=== PATIENT | female | born 1945 | race Caucasian/White ===

== ENCOUNTER 2020-06-08 01:03 | Outpatient (CLI) | payer MEDICARE, BC, SELFPAY ==
[2020-06-08 18:04] LABS: SARS-CoV-2 RNA PCR Negative
== END 2020-06-08 01:04 | disposition home or self-care (01) ==
LOC: ANHCOVIDDT 01:03
PROVIDERS: Visit Provider Surgery Plastic and Reconstructive Surgery
DX: Z01.812 Encounter for preprocedural laboratory examination (principal); Z20.828 Contact with and (suspected) exposure to other viral communicable diseases
CPT/HCPCS: 87635; C9803; U0003

== ENCOUNTER 2020-06-11 02:40 | Day surgery (SDC) | payer MEDICARE, BC, SELFPAY ==
[2020-06-05 10:15] VITALS: BMI 38.2
[2020-06-11 06:49] VITALS: BP 127/59; PULSE 62; RESP 20; TEMP 35.6; O2SAT 98
--- NOTE | 2020-06-11 06:59 | WPDHPUPDATE1 ---
History and Physical Update Update Date/Time: 06/11/20 06:59 History and Physical has been reviewed, including an updated exam of the patient. There are NO changes in the patient's condition. Risks, benefits, and alternatives have been discussed and questions answered. Patient agrees to proceed with procedure.
[2020-06-11] MEDS: LACTATED RINGERS 1,000 ML 30 ML IV CONT ×2 (07:34→09:27)
[2020-06-11 07:41] LABS: Glucose Point of Care 181 (65-105)
--- NOTE | 2020-06-11 08:08 | WPDANESEPP ---
Anes - Eval Pre Procedure Procedure: Operation Date: 06/11/20 08:30 Proposed Procedures p Bilateral Upper Eyelid Blepharoplasty - Marcos Yu MD Date/Time: 06/11/20 08:08 Pre Op Diagnosis: dermatochalasis Patient Data Age: 74 Gender: F Height: 5 ft 5 in Weight: 99.85 kg Last Vital Signs Temp 96.0 F L 06/11/20 06:49 Pulse 62 06/11/20 06:49 Resp 20 06/11/20 06:49 BP 127/59 L 06/11/20 06:49 Pulse Ox 98 06/11/20 06:49 Allergies Allergy/AdvReac Type Severity Reaction Status Date / Time codeine Allergy Nausea Verified 06/11/20 07:03 Home Medications Medication Instructions Recorded Confirmed Type aspirin 81 mg chewable tablet 81 mg PO DAILY 02/28/20 06/11/20 History escitalopram oxalate 10 mg tablet 10 mg PO DAILY tablet 02/28/20 06/11/20 History levothyroxine 150 mcg tablet 150 mcg PO DAILY tablet 02/28/20 06/11/20 History losartan 50 mg tablet 50 mg PO DAILY tablet 02/28/20 06/11/20 History metoprolol succinate 25 mg 25 mg PO QPM tablet 02/28/20 06/11/20 History tablet,extended release 24 hr rosuvastatin 10 mg tablet 10 mg PO QPM tablet 02/28/20 06/11/20 History sitagliptin 50 mg-metformin 1,000 1 tablet PO BID tablet 02/28/20 06/11/20 History mg tablet cholecalciferol (vitamin D3) 50 mcg PO DAILY 06/05/20 06/11/20 History cyanocobalamin (vitamin B-12) 1,000 mcg PO BID 06/05/20 06/11/20 History magnesium 200 mg PO HS 06/05/20 06/11/20 History omeprazole 40 mg PO DAILY 06/05/20 06/11/20 History solifenacin [Vesicare] 5 mg PO QPM 06/05/20 06/11/20 History Laboratory Tests 06/11/20 07:32 POC Capillary Glucose 181 mg/dl H mg/dl (65-105) Patient hx anesthesia problems: none Family hx anesthesia problems: none PMFSH Past Medical History Medical History Dermatochalasis of both upper eyelids Diabetes type II Encounter for cosmetic surgery Epiphora Milia Seborrheic keratosis Visual field defect Surgical History Surgical History History of carpal tunnel surgery 2016 History of hernia surgery 1975 History of hysterectomy 2000 History of right hip replacement 2016 History of rotator cuff surgery right - 2012 History of tubal ligation 1974 History of weight loss surgery Social History Social History Smoking status: Never smoker Alcohol intake: never Substance use: never Living arrangements: with family Spiritual care concerns: No Exam Day of Procedure 06/11/20 08:08 Patient weight: obese Heart: regular rate and rhythm Lungs: clear to auscultation Airway: Mallampati scale class II Neurological: alert and oriented
--- NOTE | 2020-06-11 08:20 | P.PNAN_ITS ---
Anes - Eval Final PreProcedure Day of Procedure 06/11/20 08:20 Patient weight: obese Heart: regular rate and rhythm Lungs: clear to auscultation Airway: Mallampati scale class II Neurological: alert and oriented Last oral intake: >/= 8 hours ASA classification: III Emergent: no Anesthetic plan: proceed Anesthesia type and monitoring: general LMA and standard monitoring Informed Consent: The patient's anesthetic plan and its attendant risks and be nefits were discussed with the patient/family/POA. Questions were solicited and answers provided to the satisfaction of the patient/family/POA.
[2020-06-11] MEDS: ceFAZolin 2 GM/D5W 50 ML 2 GM/50 ML BAG IVPB (08:24)
[2020-06-11] MEDS: LIDO 1%/EPINEPHRINE 1:100,000 20 ML VIAL 7 ML INFILTRATE (08:24)
[2020-06-11] MEDS: KETOROLAC 30 MG/ML VIAL (*BKC) 15 MG IV PUSH (09:10)
[2020-06-11 09:27] VITALS: BP 117/58; PULSE 69; RESP 14; O2SAT 95
--- NOTE | 2020-06-11 09:29 | PM.PROC ---
Procedure Note - Detailed Date of procedure: 06/11/20 Pre-op diagnosis: dermatochalasis Post-op diagnosis: same Procedure performed: Bilateral upper eyelid blepharoplasty Description of procedure: Risks, benefits, alternatives were discussed extensive detail. I her to be very realistic about the risks involved as well as expectations. Made sure answered all of her questions to her satisfaction. Consent obtained. She was marked in the preoperative holding area with her verification. I did a pinch test to make sure that she had no lagophthalmos with excision of the tissue. She was taken to the operating room placed supine on the operating room table. Anesthesia provided by anesthesiology and prepped and draped in a standard sterile fashion. Surgical time-out was taken. 1% lidocaine and 0.25% Marcaine with epinephrine was used anesthetize locally. A 15 blade used to excise the skin flap. I then opened the medial and middle compartments and verified there was no excess adiposity. May try verified strict hemostasis. I closed with a running subcuticular 4-0 Prolene. I placed Steri-Strips with benzoin medial and lateral to affix the suture ends. Irrigated the eyes with BSS. Taken to the PACU without difficulty. All instrument sponge counts were correct at the end of the case. Anesthesia: GLMA Surgeon: Marcos Yu MD Estimated blood loss (mL): 5 Drains: No Packing: No Pathology: none sent Complications: No immediate complications Condition: stable Disposition: PACU
[2020-06-11 09:38] LABS: Glucose Point of Care 146 (65-105)
[2020-06-11] MEDS: BACITRACIN OP OINT 3.5 GM TUBE 1 APPLIC EACH EYE (09:45)
[2020-06-11 09:50] VITALS: BP 116/62; PULSE 60; RESP 20
[2020-06-11 10:20] VITALS: BP 110/60; PULSE 64; RESP 16
--- NOTE | 2020-06-11 10:36 | SUR.OPER ---
EBL:5cc
== END 2020-06-11 10:30 | disposition home or self-care (01) ==
PROVIDERS: Visit Provider Surgery Plastic and Reconstructive Surgery
PROC: (CPT 15823; principal; 2020-06-11 08:30)
DX: H02.834 Dermatochalasis of left upper eyelid (principal); H02.831 Dermatochalasis of right upper eyelid; H53.40 Unspecified visual field defects; H04.209 Unspecified epiphora, unspecified side; I10 Essential (primary) hypertension; E78.5 Hyperlipidemia, unspecified; E11.9 Type 2 diabetes mellitus without complications; E03.9 Hypothyroidism, unspecified; E66.9 Obesity, unspecified; Z68.36 Body mass index [BMI] 36.0-36.9, adult; Z98.84 Bariatric surgery status; Z79.82 Long term (current) use of aspirin; Z79.899 Other long term (current) drug therapy
CPT/HCPCS: 15823; A9270; J0690; J1885; J2405; J2704; J3010; J7120

== ENCOUNTER → 2020-11-30 01:13 | Outpatient (CLI) | payer OTHER, SELFPAY ==
[2020-11-30 19:16] LABS: SARS-CoV-2 RNA PCR Negative
== END ==
PROVIDERS: Visit Provider Surgery Plastic and Reconstructive Surgery
DX: Z01.812 Encounter for preprocedural laboratory examination (principal); Z20.822 Contact with and (suspected) exposure to COVID-19
CPT/HCPCS: C9803; U0003; U0005

== ENCOUNTER 2020-11-30 07:27 | Outpatient (CLI) | payer OTHER, SELFPAY ==
[2020-11-30 08:24] LABS: Hemoglobin 12.9 g/dL (12.0-15.0); Mean Corpuscular HGB Conc 30.7 g/dl (32-36); Mean Corpuscular Volume 94.4 fl (80-100); Mean Platelet Volume 12.7 fl (7.4-10.4); Platelet Count Result 238 k/mm3 (150-375); Red Blood Count 4.45 M/mm3 (4.2-5.4); Red Cell Distribution Width 13.2 % (11.5-14.5)
[2020-11-30 08:36] LABS: Anion Gap 5 mmol/L (8-16); Blood Urea Nitrogen 20 mg/dL (7-17); Calcium 8.9 mg/dL (8.4-10.2); Carbon Dioxide 34 mmol/L (22-30); Chloride 101 mmol/L (98-107); Estimated Glomerular Filt Rate 54; Glucose 176 mg/dL (65-105); Potassium 4.5 mmol/L (3.4-5.0); Sodium 140 mmol/L (137-145)
[2020-11-30 09:00] LABS: Hemoglobin A1C 9.1 % (<5.7)
== END 2020-11-30 07:28 | disposition home or self-care (01) ==
LOC: ANHLAB 07:33
PROVIDERS: Visit Provider Surgery Plastic and Reconstructive Surgery
DX: Z01.818 Encounter for other preprocedural examination (principal)
CPT/HCPCS: 36415; 80048; 83036; 85027